=== PATIENT | female | born 1975 | race Caucasian/White ===

== ENCOUNTER 2018-04-14 16:57 | Inpatient (IN) | payer MEDICAID, OTHER ==
[~2018-04-14] VITALS: Ht 157.5 cm; Wt 69.5 kg
[2018-04-14] MEDS ORDERED: OLAN10TA3 PO (17:44)
[2018-04-14] MEDS ORDERED: BUSP5TAB20 PO (17:44)
[2018-04-14] MEDS ORDERED: OLAN5TAB2 PO (17:44)
[2018-04-14] MEDS ORDERED: PRAZ2 PO (17:44)
[2018-04-14] MEDS ORDERED: SERT100T12 PO (17:44)
[2018-04-14 18:15] LABS: AMPHET/METH SCREEN,URINE NEGATIVE (NEGATIVE); BARBITURATE SCREEN, URINE NEGATIVE (NEGATIVE); BENZODIAZEPINES SCREEN,URINE NEGATIVE (NEGATIVE); CANNABINOID SCREEN,URINE NEGATIVE (NEGATIVE); COCAINE SCREEN,URINE NEGATIVE (NEGATIVE); METHADONE SCREEN, URINE NEGATIVE (NEGATIVE); OPIATE SCREEN,URINE POSITIVE (NEGATIVE)
[2018-04-14 18:22] LABS: BASOPHILS % (AUTO) 0.5 % (0.0-2.0); EOSINOPHILS % (AUTO) 1.2 % (1.0-6.0); HEMATOCRIT 40.1 % (36-46); HEMOGLOBIN 13.6 g/dL (12.0-16.0); LYMPHOCYTES # (AUTO) 1.3 K/uL (1.0-4.8); LYMPHOCYTES % (AUTO) 22.6 % (22.0-44.0); MEAN CORPUSCULAR VOLUME 88 fL (80-100); MONOCYTES # (AUTO) 0.5 K/uL (0.1-1.0); MONOCYTES % (AUTO) 8.1 % (2.0-9.0); NEUTROPHILS # (AUTO) 3.9 K/uL (1.8-7.7); NEUTROPHILS % (AUTO) 67.6 % (40.0-70.0); PLATELET COUNT (AUTO) 267 K/uL (150-450); RED BLOOD CELL COUNT(AUTO) 4.55 MIL/uL (4.00-5.20); RED CELL DISTRIBUTION WIDTH 13.6 % (11.5-14.5)
[2018-04-14 18:24] LABS: PHENCYCLIDINE SCREEN,URINE NEGATIVE (NEGATIVE)
[2018-04-14 18:27] LABS: ANION GAP 6 mmol/L (8-16); CALCIUM, TOTAL 8.5 mg/dL (8.8-10.5); CARBON DIOXIDE 28 mmol/L (22-29); CHLORIDE 104 mmol/L (98-107); CREATININE 0.71 mg/dL (0.60-1.30); GLOMERULAR FILTR. RATE CALC > 60 mL/min (>60); GLUCOSE,RANDOM 84 mg/dL (70-110); POTASSIUM 4.3 mmol/L (3.5-5.1); SODIUM SERUM 138 mmol/L (136-145); UREA NITROGEN, BLOOD 9 mg/dL (7-18)
[2018-04-14 18:34] LABS: ALANINE AMINOTRANSFERASE 34 U/L (12-78); ALBUMIN 3.8 g/dL (3.4-5.0); ALKALINE PHOSPHATASE 29 U/L (46-116); ASPARTATE AMINOTRANSFERASE 20 U/L (15-37); BILIRUBIN,TOTAL 0.4 mg/dL (0.1-1.0); TOTAL PROTEIN, SERUM 7.8 g/dL (6.4-8.2)
[2018-04-14] MEDS ORDERED: CARISOPRODOL 350 MG TABLET PO ONE (21:15)
[2018-04-14] MEDS ORDERED: HYDROCODONE/ACETAMINOPHEN 5-325 MG TABLET PO ONE (21:45)
[2018-04-14] MEDS ORDERED: LORazepam 1 MG TABLET PO ONE (21:45)
[2018-04-14] MEDS ORDERED: DiphenhydrAMINE HCL 25 MG CAPSULE PO ONE (21:45)
[2018-04-14] MEDS ORDERED: OLANZapine 5 MG RAPDIS TABLET PO PRN (21:45)
[2018-04-14] MEDS ORDERED: OLANZapine 5 MG TABLET PO ONE (21:45)
[2018-04-14] MEDS ORDERED: ZOLPIDEM TARTRATE 10 MG TABLET PO PRN (21:45)
[2018-04-15 00:40] VITALS: BP 113/78
[2018-04-15 08:04] VITALS: BP 119/60
[2018-04-15] MEDS: BusPIRone HCL 5 MG TABLET PO SCH ×3 (08:06→17:09)
[2018-04-15] MEDS ORDERED: LOPERAMIDE HCL 2 MG CAPSULE PO PRN (12:00)
[2018-04-15] MEDS ORDERED: MAGNESIUM HYDROXIDE SUSPENSION 30 ML UDCUP PO PRN (12:00)
[2018-04-15] MEDS ORDERED: PROMETHAZINE HCL 25 MG TABLET PO PRN (12:00)
[2018-04-15] MEDS ORDERED: GuaiFENesin/D-METHORPHAN [SUGAR-FREE] 200-20MG/10 ML SYRUP UDCUP PO PRN (12:00)
[2018-04-15] MEDS ORDERED: ACETAMINOPHEN 325 MG TABLET PO PRN (12:00)
[2018-04-15] MEDS ORDERED: MAG HYDROX/AL HYDROX/SIMETH ES 30 ML SUSPENSION UDCUP PO PRN (12:00)
[2018-04-15] MEDS ORDERED: TUBERCULIN, PURIFIED PROTEIN DERIVATIVE 5 TU/0.1 ML SYG ID ONE (12:00)
[2018-04-15] MEDS ORDERED: HydrOXYzine PAMOATE 50 MG CAPSULE PO PRN (12:00)
[2018-04-15 16:14] VITALS: BP 110/69
[2018-04-15 16:28] VITALS: BP 110/69
[2018-04-15] MEDS: THIAMINE HCL 100 MG TABLET PO SCH (17:09)
[2018-04-15] MEDS: LORazepam 2 MG TABLET PO PRN (17:13)
[2018-04-15 20:07] VITALS: BP 111/64
[2018-04-15] MEDS: SERTRALINE HCL 100 MG TABLET PO SCH (20:12)
[2018-04-15] MEDS: PRAZOSIN HCL 2 MG CAPSULE PO SCH (20:12)
[2018-04-15] MEDS ORDERED: OLANZapine 5 MG TABLET PO SCH (21:00)
[2018-04-15] MEDS ORDERED: SERTRALINE HCL 100 MG TABLET PO SCH (21:00)
[2018-04-16 00:10] VITALS: BP 121/79
[2018-04-16] MEDS: LORazepam 2 MG TABLET PO PRN ×3 (00:42→22:07)
[2018-04-16 08:09] VITALS: BP 120/59
[2018-04-16 08:26] LABS: CHOL/HDL RATIO 3.1 (3.9-5.7)
[2018-04-16] MEDS: BusPIRone HCL 5 MG TABLET PO SCH ×3 (09:09→17:01)
[2018-04-16] MEDS: MULTIVITAMINS WITH MINERALS, THERAPEUTIC TABLET PO SCH (09:09)
[2018-04-16] MEDS: THIAMINE HCL 100 MG TABLET PO SCH ×2 (09:09→17:01)
[2018-04-16] MEDS: FOLIC ACID 1 MG TABLET PO SCH (09:09)
[2018-04-16] MEDS ORDERED: OLAN5TAB27 PO (15:07)
[2018-04-16] MEDS ORDERED: SERT100T12 PO (15:07)
[2018-04-16] MEDS ORDERED: PRAZ2 PO (15:07)
[2018-04-16] MEDS ORDERED: BUSP5TAB20 PO (15:07)
[2018-04-16 16:03] VITALS: BP 131/77
[2018-04-16] MEDS: PRAZOSIN HCL 2 MG CAPSULE PO SCH (20:04)
[2018-04-16] MEDS: SERTRALINE HCL 100 MG TABLET PO SCH (20:04)
[2018-04-16] MEDS ORDERED: OLANZapine 10 MG TABLET PO SCH (21:00)
[2018-04-17 07:18] VITALS: BP 130/74
[2018-04-17 08:08] VITALS: BP 127/70
[2018-04-17] MEDS ORDERED: SERT100T12 PO (08:56)
[2018-04-17] MEDS: THIAMINE HCL 100 MG TABLET PO SCH (09:35)
[2018-04-17] MEDS: MULTIVITAMINS WITH MINERALS, THERAPEUTIC TABLET PO SCH (09:35)
[2018-04-17] MEDS: BusPIRone HCL 5 MG TABLET PO SCH ×2 (09:35→13:02)
[2018-04-17] MEDS: FOLIC ACID 1 MG TABLET PO SCH (09:38)
[2018-04-17] MEDS: LORazepam 2 MG TABLET PO PRN (09:39)
== END 2018-04-17 13:45 | disposition home or self-care (01) | DRG 750 ==
LOC: EMS 16:58 → B2S 22:30 → B3A 04-15 00:01
PROVIDERS: ADMIT Psychiatry & Neurology Psychiatry; ATTEND Psychiatry & Neurology Psychiatry
DX: F25.9 Schizoaffective disorder, unspecified (principal); E83.51 Hypocalcemia; R45.851 Suicidal ideations; F31.9 Bipolar disorder, unspecified; F43.10 Post-traumatic stress disorder, unspecified; F17.200 Nicotine dependence, unspecified, uncomplicated; G89.29 Other chronic pain; M54.5 Low back pain; G47.00 Insomnia, unspecified; Z91.19 Patient's noncompliance with other medical treatment and regimen; Z65.3 Problems related to other legal circumstances; Z79.899 Other long term (current) drug therapy; Z91.5 Personal history of self-harm
CPT/HCPCS: 99285; G0480